=== PATIENT | male | born 1980 | race Asian ===

== ENCOUNTER 2018-07-17 06:11 | Inpatient (IN) | payer OTHER ==
[2018-07-17 07:00] LABS: ADD MAN DIFF? NO
[2018-07-17 07:01] LABS: BASOPHILS % 0.3 % (0.0-2.0); EOSINOPHILS # 0.1 10^3/ul (0.0-0.5); EOSINOPHILS % 0.9 % (0.0-7.0); HEMATOCRIT 41.3 % (42.0-52.0); HEMOGLOBIN 14.2 g/dl (14.0-18.0); LYMPHOCYTES # 1.3 10^3/ul (0.8-2.9); LYMPHOCYTES % 16.4 % (15.0-51.0); MEAN CORPUSCULAR HGB CONC 34.4 g/dl (32.0-37.0); MEAN CORPUSCULAR VOLUME 90.2 fl (82.0-101.0); MEAN PLATELET VOLUME 9.5 fl (7.4-10.4); MONOCYTE # 0.6 10^3/ul (0.3-0.9); MONOCYTES % 6.9 % (0.0-11.0); NEUTROPHILS % 75.4 % (39.0-77.0); PLATELET COUNT 178 10^3/UL (140-415); RED BLOOD COUNT 4.58 10^6/ul (4.70-6.10); RED CELL DISTRIBUTION WIDTH 12.2 % (11.5-14.5)
[2018-07-17] MEDS: ONDANSETRON 4 MG INJ IV ×2 (07:16→17:10)
[2018-07-17] MEDS: PANTOPRAZOLE 40 MG INJ IV ×2 (07:16→17:11)
[2018-07-17] MEDS: SOD CHLORIDE 0.9% 1,000 ML IV ×3 (07:17→10:41)
[2018-07-17 07:22] LABS: INR 1.49; PARTIAL THROMBOPLASTIN TIME 28.1 Sec (23.0-35.0); PROTIME 18.1 Sec (11.9-14.9); PT RATIO 1.4
[2018-07-17 07:28] LABS: ALANINE AMINOTRANSFERASE 965 IU/L (13-69); ALBUMIN 3.9 g/dl (3.3-4.9); ALBUMIN/GLOBULIN RATIO 1.56; ALKALINE PHOSPHATASE 44 IU/L (42-121); ANION GAP 10 (5-13); ASPARTATE AMINO TRANSFERASE 711 IU/L (15-46); BILIRUBIN,INDIRECT 1.2 mg/dl (0-1.1); BILIRUBIN,TOTAL 1.2 mg/dl (0.2-1.3); BLOOD UREA NITROGEN 25 mg/dl (7-20); CALCIUM 7.5 mg/dl (8.4-10.2); CARBON DIOXIDE 23 mmol/L (21-31); CHLORIDE 103 mmol/L (97-110); CREATININE 0.66 mg/dl (0.61-1.24); Estimated GFR > 60 mL/min (>60); GLUCOSE 113 mg/dl (70-220); POTASSIUM 4.4 mmol/L (3.5-5.1); SODIUM 136 mmol/L (135-144); TOTAL PROTEIN 6.4 g/dl (6.1-8.1)
[2018-07-17 07:39] LABS: TROPONIN-I 0.068 ng/ml (0.000-0.120)
[2018-07-17 07:49] LABS: LIPASE 40 U/L (23-300)
[2018-07-17] MEDS ORDERED: ONDANSETRON 4 MG INJ IV ×2 (08:30→10:30)
[2018-07-17] MEDS ORDERED: ACETAMINOPHEN 325 MG TAB PO (08:30)
[2018-07-17] MEDS ORDERED: NACL 0.9% 3 ML SYG IV (10:30)
[2018-07-17] MEDS ORDERED: LORAZEPAM 2 MG INJ IV (10:30)
[2018-07-17 11:14] LABS: ETHANOL < 10.0 mg/dl (0-0)
[2018-07-17] MEDS: MULTIVITAMINS 10 ML, THIAMINE 100 MG, FOLIC ACID 1 MG in SOD CHLORIDE 0.9% 1,000 ML IVPB (11:22)
[2018-07-17 11:26] LABS: AMPHETAMINE/METHAMPHETAMINE Negative (NEGATIVE); BARBITURATES Negative (NEGATIVE); BENZODIAZEPINES Negative (NEGATIVE); CANNABINOIDS Negative (NEGATIVE); COCAINE Negative (NEGATIVE); OPIATES Negative (NEGATIVE)
[2018-07-17] MEDS: CHLORDIAZEPOXIDE 25 MG CAP PO ×3 (12:19→20:24)
[2018-07-17 14:00] LABS: HAAIG REFLEX REFLEX FILED
[2018-07-17 14:03] LABS: HEMATOCRIT 25.7 % (42.0-52.0); HEMOGLOBIN 8.7 g/dl (14.0-18.0)
[2018-07-17 14:15] LABS: HEMOGLOBIN A1C 5.3 % (0-5.9)
[2018-07-17 14:52] LABS: HEPATITIS B SURFACE ANTIGEN NEGATIVE (NEGATIVE)
[2018-07-17 15:10] LABS: HEPATITIS B CORE ANTIBODY REACTIVE (NEGATIVE); HEPATITIS C VIRAL ANTIBODY NEGATIVE (NEGATIVE)
[2018-07-17] MEDS: IOHEXOL 14.3 MG(I)/ML (ADULT) BTL PO (16:11)
[2018-07-17] MEDS: SUCRALFATE (100 MG/ML) 10ML CUP GTB (17:10)
[2018-07-17 18:33] LABS: HEMATOCRIT 22.2 % (42.0-52.0); HEMOGLOBIN 7.8 g/dl (14.0-18.0)
[2018-07-17] MEDS: IOHEXOL 300MG/ML 150 ML BTL (18:41)
[2018-07-17] MEDS: SOD CHLORIDE 0.9% 100 ML (18:41)
[2018-07-17] MEDS: SUCRALFATE (100 MG/ML) 10ML CUP PO (20:24)
[2018-07-18] MEDS: ONDANSETRON 4 MG INJ IV ×2 (00:24→05:26)
[2018-07-18 00:30] LABS: HEMATOCRIT 21.1 % (42.0-52.0); HEMOGLOBIN 7.5 g/dl (14.0-18.0)
[2018-07-18] MEDS: morphine 2 MG INJ IV (01:05)
[2018-07-18] MEDS: PANTOPRAZOLE 40 MG INJ IV ×2 (05:26→18:32)
[2018-07-18 05:56] LABS: ADD MAN DIFF? NO
[2018-07-18 06:00] LABS: ABNORMAL IP MESSAGE 1; BASOPHILS % 0.2 % (0.0-2.0); EOSINOPHILS # 0.1 10^3/ul (0.0-0.5); EOSINOPHILS % 1.2 % (0.0-7.0); HEMATOCRIT 19.8 % (42.0-52.0); LYMPHOCYTES # 3.4 10^3/ul (0.8-2.9); LYMPHOCYTES % 42.3 % (15.0-51.0); MEAN CORPUSCULAR HEMOGLOBIN 31.7 pg (29.0-33.0); MEAN CORPUSCULAR HGB CONC 34.8 g/dl (32.0-37.0); MEAN CORPUSCULAR VOLUME 90.8 fl (82.0-101.0); MEAN PLATELET VOLUME 10.8 fl (7.4-10.4); MONOCYTE # 0.5 10^3/ul (0.3-0.9); NEUTROPHILS % 49.9 % (39.0-77.0); PLATELET COUNT 119 10^3/UL (140-415); POSITIVE DIFF @See below; RED BLOOD COUNT 2.18 10^6/ul (4.70-6.10); RED CELL DISTRIBUTION WIDTH 12.1 % (11.5-14.5)
[2018-07-18 06:36] LABS: HEMOGLOBIN 6.9 g/dl (14.0-18.0)
[2018-07-18 06:43] LABS: ALANINE AMINOTRANSFERASE 372 IU/L (13-69); ALBUMIN 2.2 g/dl (3.3-4.9); ALKALINE PHOSPHATASE 32 IU/L (42-121); ANION GAP 3 (5-13); ASPARTATE AMINO TRANSFERASE 148 IU/L (15-46); BILIRUBIN,INDIRECT 0.9 mg/dl (0-1.1); BILIRUBIN,TOTAL 0.9 mg/dl (0.2-1.3); BLOOD UREA NITROGEN 22 mg/dl (7-20); CALCIUM 6.5 mg/dl (8.4-10.2); CARBON DIOXIDE 25 mmol/L (21-31); CHLORIDE 108 mmol/L (97-110); CREATININE 0.76 mg/dl (0.61-1.24); Estimated GFR > 60 mL/min (>60); GLUCOSE 93 mg/dl (70-220); POTASSIUM 3.5 mmol/L (3.5-5.1); SODIUM 136 mmol/L (135-144); TOTAL PROTEIN 4.4 g/dl (6.1-8.1)
[2018-07-18 06:54] LABS: PHOSPHORUS 2.2 mg/dl (2.5-4.9)
[2018-07-18 06:54] LABS: CHOLESTEROL 56 mg/dl (100-200); HDL CHOLESTEROL 11 mg/dl (28-63); MAGNESIUM 2.3 mg/dl (1.7-2.5); TRIGLYCERIDES 335 mg/dl (0-149)
[2018-07-18 07:00] LABS: HEPATITIS B SURFACE ANTIGEN NEGATIVE (NEGATIVE)
[2018-07-18 07:18] LABS: HEPATITIS C VIRAL ANTIBODY NEGATIVE (NEGATIVE)
[2018-07-18 07:51] LABS: BAND NEUTROPHILS % (M) 1 % (0-4); EOSINOPHILS % (M) 1 % (0-7); LYMPHOCYTES #M 2.8 10^3/ul (0.8-2.9); LYMPHOCYTES % (M) 36 % (15-51); MONOCYTE #M 0.1 10^3/ul (0.3-0.9); MONOCYTES % (M) 2 % (0-11); PLATELET ESTIMATE NORMAL; SEG NEUT #M 4.8 10^3/ul (1.6-7.5); SEGMENTED NEUTROPHILS (M) % 60 % (39-77); SMUDGE%M 19 % (0-0)
[2018-07-18] MEDS: SUCRALFATE (100 MG/ML) 10ML CUP PO ×4 (08:33→20:34)
[2018-07-18] MEDS: MULTIVITAMINS 10 ML, THIAMINE 100 MG, FOLIC ACID 1 MG in SOD CHLORIDE 0.9% 1,000 ML IVPB (08:33)
[2018-07-18] MEDS: CHLORDIAZEPOXIDE 25 MG CAP PO ×4 (08:33→20:34)
[2018-07-18] MEDS: SOD CHLORIDE 0.9% 250 ML IV* (08:34)
[2018-07-18 09:30] LABS: IMMEDIATE SPIN CROSSMATCH 1 1
[2018-07-18] MEDS ORDERED: PROPOFOL 20 ML (17:13)
[2018-07-18] MEDS ORDERED: FENTAnyl 50 MCG/ML VIAL (17:14)
[2018-07-18] MEDS ORDERED: ONDANSETRON 4 MG INJ IV (17:30)
[2018-07-19 06:01] LABS: ADD MAN DIFF? NO
[2018-07-19 06:04] LABS: BASOPHILS % 0.3 % (0.0-2.0); EOSINOPHILS # 0.2 10^3/ul (0.0-0.5); EOSINOPHILS % 2.3 % (0.0-7.0); HEMATOCRIT 20.9 % (42.0-52.0); HEMOGLOBIN 7.3 g/dl (14.0-18.0); LYMPHOCYTES # 2.2 10^3/ul (0.8-2.9); LYMPHOCYTES % 32.9 % (15.0-51.0); MEAN CORPUSCULAR HEMOGLOBIN 30.8 pg (29.0-33.0); MEAN CORPUSCULAR HGB CONC 34.9 g/dl (32.0-37.0); MEAN CORPUSCULAR VOLUME 88.2 fl (82.0-101.0); MEAN PLATELET VOLUME 10.8 fl (7.4-10.4); MONOCYTE # 0.3 10^3/ul (0.3-0.9); NEUTROPHILS % 59.2 % (39.0-77.0); PLATELET COUNT 103 10^3/UL (140-415); RED BLOOD COUNT 2.37 10^6/ul (4.70-6.10); RED CELL DISTRIBUTION WIDTH 13.6 % (11.5-14.5)
[2018-07-19 06:04] LABS: WHITE BLOOD COUNT 6.7 10^3/ul (4.8-10.8)
[2018-07-19] MEDS: PANTOPRAZOLE 40 MG INJ IV ×2 (06:12→17:24)
[2018-07-19 06:57] LABS: ALANINE AMINOTRANSFERASE 272 IU/L (13-69); ALBUMIN 2.4 g/dl (3.3-4.9); ALBUMIN/GLOBULIN RATIO 1.09; ALKALINE PHOSPHATASE 37 IU/L (42-121); ANION GAP 4 (5-13); ASPARTATE AMINO TRANSFERASE 97 IU/L (15-46); BILIRUBIN,INDIRECT 0.7 mg/dl (0-1.1); BILIRUBIN,TOTAL 0.7 mg/dl (0.2-1.3); BLOOD UREA NITROGEN 9 mg/dl (7-20); CALCIUM 7.1 mg/dl (8.4-10.2); CARBON DIOXIDE 29 mmol/L (21-31); CHLORIDE 103 mmol/L (97-110); CREATININE 0.69 mg/dl (0.61-1.24); Estimated GFR > 60 mL/min (>60); GLUCOSE 86 mg/dl (70-220); POTASSIUM 3.3 mmol/L (3.5-5.1); SODIUM 136 mmol/L (135-144); TOTAL PROTEIN 4.6 g/dl (6.1-8.1)
[2018-07-19] MEDS: MULTIVITAMINS 10 ML, THIAMINE 100 MG, FOLIC ACID 1 MG in SOD CHLORIDE 0.9% 1,000 ML IVPB (08:51)
[2018-07-19] MEDS: SUCRALFATE (100 MG/ML) 10ML CUP PO ×4 (08:51→20:25)
[2018-07-19] MEDS: CHLORDIAZEPOXIDE 25 MG CAP PO ×3 (08:51→17:24)
[2018-07-19] MEDS: POTASSIUM CHLORIDE 100 ML IVPB (11:31)
[2018-07-19 13:27] LABS: MITOCHONDRIAL TB NEGATIVE (NEGATIVE); SMOOTH MUSCLE AB SCREEN NEGATIVE (NEGATIVE)
[2018-07-19 14:13] LABS: ANA SCREEN NEGATIVE (NEGATIVE)
[2018-07-19] MEDS: POTASSIUM CHLORIDE (SR) 20 MEQ TAB PO (14:14)
[2018-07-20 05:45] LABS: ADD MAN DIFF? NO
[2018-07-20 05:54] LABS: BASOPHILS % 0.3 % (0.0-2.0); EOSINOPHILS # 0.1 10^3/ul (0.0-0.5); EOSINOPHILS % 2.2 % (0.0-7.0); HEMATOCRIT 22.6 % (42.0-52.0); HEMOGLOBIN 7.8 g/dl (14.0-18.0); LYMPHOCYTES # 2.3 10^3/ul (0.8-2.9); LYMPHOCYTES % 38.5 % (15.0-51.0); MEAN CORPUSCULAR HEMOGLOBIN 31.1 pg (29.0-33.0); MEAN CORPUSCULAR HGB CONC 34.5 g/dl (32.0-37.0); MEAN PLATELET VOLUME 10.6 fl (7.4-10.4); MONOCYTE # 0.4 10^3/ul (0.3-0.9); MONOCYTES % 6.5 % (0.0-11.0); NEUTROPHIL # 3.1 10^3/ul (1.6-7.5); NEUTROPHILS % 52.2 % (39.0-77.0); NUCLEATED RED BLOOD CELLS% 0.3 /100WBC (0.0-0.0); PLATELET COUNT 132 10^3/UL (140-415); RED BLOOD COUNT 2.51 10^6/ul (4.70-6.10); RED CELL DISTRIBUTION WIDTH 13.7 % (11.5-14.5)
[2018-07-20] MEDS: PANTOPRAZOLE 40 MG INJ IV (05:54)
[2018-07-20 06:36] LABS: ALANINE AMINOTRANSFERASE 216 IU/L (13-69); ALBUMIN 2.9 g/dl (3.3-4.9); ALBUMIN/GLOBULIN RATIO 1.16; ALKALINE PHOSPHATASE 44 IU/L (42-121); ANION GAP 4 (5-13); ASPARTATE AMINO TRANSFERASE 64 IU/L (15-46); BILIRUBIN,INDIRECT 0.4 mg/dl (0-1.1); BILIRUBIN,TOTAL 0.4 mg/dl (0.2-1.3); BLOOD UREA NITROGEN 9 mg/dl (7-20); CALCIUM 7.9 mg/dl (8.4-10.2); CARBON DIOXIDE 31 mmol/L (21-31); CHLORIDE 104 mmol/L (97-110); CREATININE 0.75 mg/dl (0.61-1.24); Estimated GFR > 60 mL/min (>60); GLUCOSE 95 mg/dl (70-220); POTASSIUM 3.8 mmol/L (3.5-5.1); SODIUM 139 mmol/L (135-144); TOTAL PROTEIN 5.4 g/dl (6.1-8.1)
[2018-07-20 06:38] LABS: PHOSPHORUS 3.6 mg/dl (2.5-4.9)
[2018-07-20 06:38] LABS: MAGNESIUM 2.2 mg/dl (1.7-2.5)
[2018-07-20] MEDS: SUCRALFATE (100 MG/ML) 10ML CUP PO ×2 (10:01→14:49)
[2018-07-20] MEDS: MULTIVITAMINS 10 ML, THIAMINE 100 MG, FOLIC ACID 1 MG in SOD CHLORIDE 0.9% 1,000 ML IVPB (10:09)
[2018-07-20 12:05] LABS: OCCULT BLOOD STOOL NEGATIVE (NEGATIVE)
== END 2018-07-20 16:06 | disposition home or self-care (01) | DRG 378 ==
LOC: E/R 06:11 → PP2 08:17
PROVIDERS: Internal Medicine
PROC: 30233N1 Transfusion of Nonautologous Red Blood Cells into Peripheral Vein, Percutaneous Approach (ICD-10-PCS; principal; 2018-07-18 16:45)
PROC: 0DB68ZX Excision of Stomach, Via Natural or Artificial Opening Endoscopic, Diagnostic (ICD-10-PCS; 2018-07-18 16:45)
DX: K92.0 Hematemesis (principal); D62 Acute posthemorrhagic anemia; K92.1 Melena; F17.200 Nicotine dependence, unspecified, uncomplicated; F10.20 Alcohol dependence, uncomplicated; E66.9 Obesity, unspecified; Z68.26 Body mass index [BMI] 26.0-26.9, adult; D64.9 Anemia, unspecified; K25.9 Gastric ulcer, unspecified as acute or chronic, without hemorrhage or perforation; Y90.0 Blood alcohol level of less than 20 mg/100 ml; R10.32 Left lower quadrant pain
CPT/HCPCS: 36415; 36430; 74177; 80053; 80061; 80307; 82270; 83036; 83690; 83735; 84100; 84484; 85014; 85018; 85025; 85610; 85730; 86038; 86255; 86704; 86709; 86803; 86850; 86900; 86901; 86920; 87340; 88305; 88312; 93005; 96374; 96375; 99285-25